=== PATIENT | female | born 1965 | race Caucasian/White ===

== ENCOUNTER 2017-11-27 10:56 | Emergency (ER) | payer SELFPAY | END 2017-11-27 16:28 | disposition left against medical advice (07) | LOC: E/R 16:28 | DX: Z53.21 Procedure and treatment not carried out due to patient leaving prior to being seen by health care provider (principal) ==

== ENCOUNTER 2019-04-30 21:15 | Emergency (ER) | payer OTHER ==
[2019-05-01] MEDS: FLUCONAZOLE 150 MG TAB PO (01:11)
== END 2019-05-01 01:37 | disposition home or self-care (01) ==
LOC: FTE 21:15
DX: B37.3 Candidiasis of vulva and vagina (principal)
CPT/HCPCS: 82962; 99283